=== PATIENT | male | born 1970 | race Caucasian/White ===

== ENCOUNTER 2018-06-15 17:41 | Inpatient (IN) | payer MEDICAID ==
[~2018-06-15] VITALS: Ht 175.3 cm; Wt 85.0 kg
[2018-06-15] MEDS ORDERED: normal saline 1000ML IV soln IV ONE (18:00)
[2018-06-15 18:45] LABS: BASOPHILS # (AUTO) 0.1 X10'3 (0-0.2); BASOPHILS % (AUTO) 1.6 % (0-1); EOSINOPHILS # (AUTO) 0.1 X10'3 (0-0.9); EOSINOPHILS % (AUTO) 1.4 % (0-6); HEMATOCRIT 48.3 % (42.0-52.0); HEMOGLOBIN 15.9 g/dl (14.0-17.9); LYMPHOCYTES # (AUTO) 1.3 X10'3 (1.1-4.8); LYMPHOCYTES % (AUTO) 24.7 % (21-51); MEAN CORPUSCULAR HGB CONC 32.9 g/dL (33.0-36.5); MEAN CORPUSCULAR VOLUME 91.2 FL (78-98); MONOCYTES # (AUTO) 0.7 X10'3 (0-0.9); MONOCYTES % (AUTO) 13.1 % (2-12); NEUTROPHILS # (AUTO) 3.2 X10'3 (1.8-7.7); NEUTROPHILS % (AUTO) 59.2 % (42-75); PLATELET COUNT 266 X10'3 (140-440); RED CELL DISTRIBUTION WIDTH 14.8 % (11.5-14.5); WHITE BLOOD COUNT 5.4 X10'3 (4.5-11.0)
[2018-06-15 19:10] LABS: INR 1.2 INR
[2018-06-15 19:19] LABS: CLARITY,URINE CLEAR (Clear); COLOR,URINE YELLOW (Yellow); GLUCOSE, URINE NEGATIVE (Neg); KETONES,URINE NEGATIVE (Neg); LEUKOCYTE ESTERASE ,URINE NEGATIVE (Neg); NITRITES, URINE NEGATIVE (Neg); OCCULT BLOOD,URINE TRACE-INTACT (Neg); PROTEIN,URINE NEGATIVE (Neg)
[2018-06-15 19:19] LABS: ALANINE AMINOTRANSFERASE 57 U/L (12-78); ALBUMIN 2.8 G/DL (3.4-5.0); ALBUMIN/GLOBULIN RATIO 0.7 (1.1-1.5); ALKALINE PHOSPHATASE 93 IU/L (46-116); ANION GAP 10 (8-16); ASPARTATE AMINO TRANSFERASE 28 U/L (10-37); BILIRUBIN,TOTAL 0.5 MG/DL (0.1-1.0); BLOOD UREA NITROGEN 22 MG/DL (7-18); BUN/CREATININE RATIO 18.3 (5.4-32.0); CHLORIDE 102 MMOL/L (99-107); GLUCOSE 138 MG/DL (70-104); SODIUM 137 MMOL/L (135-145); TOTAL CARBON DIOXIDE 24.8 MMOL/L (24-32); TOTAL PROTEIN 6.6 G/DL (6.4-8.2); eGFR 64 ML/MIN
[2018-06-15 19:28] LABS: ETHANOL < 0.010 GM/DL (0.0-0.010)
[2018-06-15 19:28] LABS: BACTERIA,URINE NONE SEEN /HPF (Neg); RBC,URINE 0-2 /HPF (0-2); SQUAMOUS EPITHELIAL CELL,UR FEW /LPF (FEW); UA COLLECTION TYPE CLN CATCH MIDSTREAM; WBC,URINE NONE SEEN /HPF (0-4)
[2018-06-15 19:33] LABS: URINE AMPHETAMINE SCREEN NEGATIVE (Neg); URINE BARBITUATE SCREEN NEGATIVE (Neg); URINE BENZODIAZEPINES SCREEN NEGATIVE (Neg); URINE CANNABINOID SCREEN POSITIVE (Neg); URINE COCAINE SCREEN NEGATIVE (Neg); URINE METHADONE SCREEN NEGATIVE (Neg); URINE OPIATE SCREEN NEGATIVE (Neg); URINE PHENCYCLIDINE SCREEN NEGATIVE (Neg)
--- NOTE | 2018-06-15 19:38 | NUR ---
spoke to oma about poc. held second liter ns due to elevated bnp
[2018-06-15] MEDS ORDERED: NO HOME MEDS (20:19)
[2018-06-15] MEDS ORDERED: ondansetron/PF 4mg/2ml inj IV PRN (21:45)
[2018-06-15] MEDS ORDERED: magnesium hydroxide 30ml (MOM) UD suspension PO PRN (21:45)
[2018-06-15] MEDS ORDERED: mag hydrox/Alum hydrox/simeth 30ml oral suspension PO PRN (21:45)
--- NOTE | 2018-06-15 22:03 | NUR ---
VISITOR FOR BED 6 DROPPED THC CBD GUMMIES AND CIGARETTES FOR PT. SECURITY NOTIFIED. VISITOR NOT ALLOWED BACK INTO ER
--- NOTE | 2018-06-15 22:07 | NUR ---
TELE NURSE BUSY, WILL CALL BACK
[2018-06-15 22:40] VITALS: BP 148/95
--- NOTE | 2018-06-15 22:40 | NUR ---
Patient arrived on floor via gurney from the ED after receiving report from Michael ONOFRE. Patient able to ambulate to hospital bed with minimal assistance. Vitals taken, placed on awake overnight monitor, oriented to room. Patient on room air, no complaint of pain. IV is saline locked patent, saline flushed at this time. Patient's belongings accompanied
[2018-06-16 02:00] VITALS: BP 151/96
[2018-06-16 03:00] VITALS: BP 151/96
[2018-06-16 03:11] LABS: BASOPHILS # (AUTO) 0.1 X10'3 (0-0.2); BASOPHILS % (AUTO) 1.3 % (0-1); EOSINOPHILS # (AUTO) 0.1 X10'3 (0-0.9); EOSINOPHILS % (AUTO) 1.5 % (0-6); HEMOGLOBIN 14.8 g/dl (14.0-17.9); LYMPHOCYTES # (AUTO) 1.9 X10'3 (1.1-4.8); LYMPHOCYTES % (AUTO) 25.8 % (21-51); MEAN CORPUSCULAR HEMOGLOBIN 29.8 PG (27.0-31.0); MEAN CORPUSCULAR HGB CONC 32.9 g/dL (33.0-36.5); MEAN CORPUSCULAR VOLUME 90.7 FL (78-98); MEAN PLATELET VOLUME 8.5 FL (7.4-10.4); MONOCYTES # (AUTO) 0.9 X10'3 (0-0.9); MONOCYTES % (AUTO) 12.5 % (2-12); NEUTROPHILS # (AUTO) 4.3 X10'3 (1.8-7.7); NEUTROPHILS % (AUTO) 58.9 % (42-75); PLATELET COUNT 280 X10'3 (140-440); RED BLOOD COUNT 4.96 X10'6 (4.70-6.10); RED CELL DISTRIBUTION WIDTH 14.3 % (11.5-14.5); WHITE BLOOD COUNT 7.4 X10'3 (4.5-11.0)
[2018-06-16 03:44] LABS: ALANINE AMINOTRANSFERASE 43 U/L (12-78); ALBUMIN 2.3 G/DL (3.4-5.0); ALBUMIN/GLOBULIN RATIO 0.7 (1.1-1.5); ALKALINE PHOSPHATASE 79 IU/L (46-116); ANION GAP 10 (8-16); ASPARTATE AMINO TRANSFERASE 24 U/L (10-37); BILIRUBIN,TOTAL 0.3 MG/DL (0.1-1.0); BLOOD UREA NITROGEN 20 MG/DL (7-18); BUN/CREATININE RATIO 18.7 (5.4-32.0); CALCIUM 7.5 MG/DL (8.5-10.1); CHLORIDE 109 MMOL/L (99-107); CHOL/HDL RATIO 3.4 (0.00-4.99); CHOLESTEROL 109 MG/DL (0-200); CREATININE 1.07 MG/DL (0.60-1.10); GLUCOSE 103 MG/DL (70-104); HDL CHOLESTEROL 32 MG/DL (35-60); LDL CHOLESTEROL 69 MG/DL (50-100); POTASSIUM 4.1 MMOL/L (3.5-5.1); SODIUM 144 MMOL/L (135-145); TOTAL CARBON DIOXIDE 25.1 MMOL/L (24-32); TOTAL PROTEIN 5.7 G/DL (6.4-8.2); TRIGLYCERIDES 96 MG/DL (20-135); eGFR 73 ML/MIN
[2018-06-16 06:00] VITALS: BP 138/75
--- NOTE | 2018-06-16 06:30 | NUR ---
Patient in room PCU 3016. I have received report from JEMIMA Rabago and had the opportunity to ask questions and assume patient care.
--- NOTE | 2018-06-16 06:42 | NUR ---
Problems reprioritized. Patient report given, questions answered & plan of care reviewed with Le ONOFRE
[2018-06-16] MEDS: cephalexin 500mg capsule PO SCH ×3 (08:51→20:30)
[2018-06-16] MEDS: furosemide 40mg/4ml inj IV SCH ×2 (08:52→20:31)
[2018-06-16] MEDS: carVEDilol 3.125mg tablet PO SCH ×2 (08:52→20:31)
[2018-06-16] MEDS: heparin, porcine 5000 units/ml vial SQ SCH ×2 (08:52→20:31)
[2018-06-16] MEDS ORDERED: FLU VACC QUAD 2018(5 YR UP)/PF 60 MCG/0.5 ML SYRINGE IM ONE ×2 (10:00→20:50)
[2018-06-16] MEDS ORDERED: pneumococcal 23-VAL P-sac vacc 25 mcg/0.5ml vial IMVAC ONE (10:00)
[2018-06-16] MEDS: LORazepam 2 mg/ml vial IV PRN ×2 (14:57→20:45)
[2018-06-16 15:00] VITALS: BP 141/93
[2018-06-16 18:00] VITALS: BP 149/107
--- NOTE | 2018-06-16 18:08 | NUR ---
Problems reprioritized. Patient report given, questions answered & plan of care reviewed with JEMIMA Ramirez.
--- NOTE | 2018-06-16 18:27 | NUR ---
Student documentation: I have reviewed and agree with all interventions, assessments performed and documented by SN Maria E.
--- NOTE | 2018-06-16 18:27 | NUR ---
Student Medication Administration: For this medication-pass time frame, all medication were reviewed, dispensed, administered and documented per hospital policy by SN Maria E.
[2018-06-16] MEDS: lactobacillus rhamnosus 10,000 MMU CELLS/CAPSULE PO SCH (20:31)
[2018-06-16] MEDS: lisinopril 10 MG tablet PO SCH (20:31)
[2018-06-16] MEDS: acetaminophen 325mg tablet PO PRN (20:49)
[2018-06-16 22:00] VITALS: BP 145/94
[2018-06-17 02:00] VITALS: BP 118/77
[2018-06-17] MEDS: acetaminophen 325mg tablet PO PRN (04:47)
[2018-06-17] MEDS: LORazepam 2 mg/ml vial IV PRN ×2 (04:47→20:25)
--- NOTE | 2018-06-17 04:57 | NUR ---
Pt refusing labs. tissue technician will send another later for blood draw.
[2018-06-17 06:00] VITALS: BP 137/92
--- NOTE | 2018-06-17 06:20 | NUR ---
Problems reprioritized. Patient report given, questions answered & plan of care reviewed with Art, RN.
[2018-06-17 06:21] LABS: ALANINE AMINOTRANSFERASE 44 U/L (12-78); ALBUMIN 2.6 G/DL (3.4-5.0); ALBUMIN/GLOBULIN RATIO 0.7 (1.1-1.5); ALKALINE PHOSPHATASE 83 IU/L (46-116); ANION GAP 10 (8-16); ASPARTATE AMINO TRANSFERASE 26 U/L (10-37); BILIRUBIN,TOTAL 0.7 MG/DL (0.1-1.0); BLOOD UREA NITROGEN 19 MG/DL (7-18); BUN/CREATININE RATIO 17.4 (5.4-32.0); CALCIUM 8.6 MG/DL (8.5-10.1); CHLORIDE 102 MMOL/L (99-107); CREATININE 1.09 MG/DL (0.60-1.10); GLUCOSE 108 MG/DL (70-104); SODIUM 138 MMOL/L (135-145); TOTAL CARBON DIOXIDE 26.3 MMOL/L (24-32); TOTAL PROTEIN 6.4 G/DL (6.4-8.2); eGFR 72 ML/MIN
[2018-06-17] MEDS: lactobacillus rhamnosus 10,000 MMU CELLS/CAPSULE PO SCH ×2 (07:56→20:24)
[2018-06-17] MEDS: carVEDilol 3.125mg tablet PO SCH (07:56)
[2018-06-17] MEDS: cephalexin 500mg capsule PO SCH ×3 (07:57→20:25)
[2018-06-17] MEDS: furosemide 40mg/4ml inj IV SCH ×2 (07:58→20:33)
[2018-06-17] MEDS: heparin, porcine 5000 units/ml vial SQ SCH ×2 (07:58→20:25)
[2018-06-17] MEDS ORDERED: carVEDilol 3.125mg tablet PO ONE (08:30)
[2018-06-17 11:00] VITALS: BP 147/94
--- NOTE | 2018-06-17 13:44 | NUR ---
PAGER ID: [phone] MESSAGE: Dr. Richard, Pt [place] in [id number] is requesting Motrin for a headache. He was offered Tylenol, but he states that only Motrin will work. Art, 1991
[2018-06-17] MEDS: ibuprofen tablet 400 MG TABLET PO PRN ×2 (14:06→20:25)
[2018-06-17 15:00] VITALS: BP 136/95
[2018-06-17 18:00] VITALS: BP 119/96
--- NOTE | 2018-06-17 18:17 | NUR ---
Patient in room PCU 3016. I have received report from Art RN and had the opportunity to ask questions and assume patient care.
[2018-06-17] MEDS ORDERED: carVEDilol 3.125mg tablet PO SCH (20:00)
[2018-06-17] MEDS: lisinopril 10 MG tablet PO SCH (20:33)
[2018-06-17] MEDS: carvedilol 6.25mg tablet PO SCH (20:33)
[2018-06-17 22:00] VITALS: BP 99/60
[2018-06-18] VITALS (7 sets, daily range): BP systolic 97–121; BP diastolic 62–89
--- NOTE | 2018-06-18 05:31 | NUR ---
Patient refused lab draw.
--- NOTE | 2018-06-18 06:29 | NUR ---
Problems reprioritized. Patient report given, questions answered & plan of care reviewed with Art RN. patient currently sleeping on his left side. Bed is low, rails x 2 up.
[2018-06-18] MEDS: cephalexin 500mg capsule PO SCH ×3 (07:46→20:02)
[2018-06-18] MEDS: lactobacillus rhamnosus 10,000 MMU CELLS/CAPSULE PO SCH ×2 (07:46→20:00)
[2018-06-18] MEDS: carvedilol 6.25mg tablet PO SCH ×2 (07:46→20:00)
[2018-06-18 07:49] LABS: ALANINE AMINOTRANSFERASE 41 U/L (12-78); ALBUMIN 2.8 G/DL (3.4-5.0); ALBUMIN/GLOBULIN RATIO 0.7 (1.1-1.5); ALKALINE PHOSPHATASE 86 IU/L (46-116); ANION GAP 9 (8-16); ASPARTATE AMINO TRANSFERASE 25 U/L (10-37); BILIRUBIN,TOTAL 0.4 MG/DL (0.1-1.0); BLOOD UREA NITROGEN 24 MG/DL (7-18); BUN/CREATININE RATIO 22.9 (5.4-32.0); CALCIUM 8.5 MG/DL (8.5-10.1); CHLORIDE 101 MMOL/L (99-107); CREATININE 1.05 MG/DL (0.60-1.10); GLUCOSE 95 MG/DL (70-104); POTASSIUM 4.4 MMOL/L (3.5-5.1); SODIUM 137 MMOL/L (135-145); TOTAL CARBON DIOXIDE 27.4 MMOL/L (24-32); TOTAL PROTEIN 6.8 G/DL (6.4-8.2); eGFR 75 ML/MIN
[2018-06-18] MEDS: LORazepam 2 mg/ml vial IV PRN ×2 (07:59→21:52)
[2018-06-18] MEDS: ibuprofen tablet 400 MG TABLET PO PRN ×2 (08:01→20:54)
[2018-06-18] MEDS: furosemide 40mg/4ml inj IV SCH ×2 (08:01→19:59)
[2018-06-18] MEDS: heparin, porcine 5000 units/ml vial SQ SCH ×2 (08:02→20:00)
--- NOTE | 2018-06-18 18:26 | NUR ---
Patient in room U 3016. I have received report from JEMIMA Escalera and had the opportunity to ask questions and assume patient care. Addendum: 06/18/18 at 1826 by Teresita Castillo RN Amended: Links added.
[2018-06-18] MEDS: lisinopril 10 MG tablet PO SCH (20:02)
--- NOTE | 2018-06-18 22:08 | NUR ---
pt refuses to have iv restarted at this time, states "maybe later" pt very adamant states no one is going to "poke me with a needle tonight" "I'm going home tomorrow" Addendum: 06/18/18 at 2209 by Teresita Castillo RN Amended: Links added.
[2018-06-19 02:00] VITALS: BP 96/55
[2018-06-19 06:00] VITALS: BP 104/67
--- NOTE | 2018-06-19 06:26 | NUR ---
Problems reprioritized. Patient report given, questions answered & plan of care reviewed with RN. Addendum: 06/19/18 at 0626 by Teresita Castillo RN Amended: Links added.
[2018-06-19] MEDS: ibuprofen tablet 400 MG TABLET PO PRN (06:27)
--- NOTE | 2018-06-19 06:31 | NUR ---
Patient in room PCU 3016. I have received report from JEMIMA Patino and had the opportunity to ask questions and assume patient care.
[2018-06-19] MEDS: furosemide 40mg/4ml inj IV SCH (08:00)
[2018-06-19] MEDS: lactobacillus rhamnosus 10,000 MMU CELLS/CAPSULE PO SCH (08:20)
[2018-06-19] MEDS: cephalexin 500mg capsule PO SCH ×2 (08:20→13:14)
[2018-06-19] MEDS: heparin, porcine 5000 units/ml vial SQ SCH (08:20)
[2018-06-19] MEDS: carvedilol 6.25mg tablet PO SCH (08:21)
[2018-06-19 08:30] LABS: ALANINE AMINOTRANSFERASE 58 U/L (12-78); ALBUMIN 2.9 G/DL (3.4-5.0); ALBUMIN/GLOBULIN RATIO 0.7 (1.1-1.5); ALKALINE PHOSPHATASE 87 IU/L (46-116); ANION GAP 7 (8-16); ASPARTATE AMINO TRANSFERASE 38 U/L (10-37); BILIRUBIN,TOTAL 0.4 MG/DL (0.1-1.0); BLOOD UREA NITROGEN 22 MG/DL (7-18); BUN/CREATININE RATIO 21.6 (5.4-32.0); CALCIUM 8.2 MG/DL (8.5-10.1); CHLORIDE 98 MMOL/L (99-107); CREATININE 1.02 MG/DL (0.60-1.10); GLUCOSE 107 MG/DL (70-104); POTASSIUM 4.2 MMOL/L (3.5-5.1); SODIUM 133 MMOL/L (135-145); TOTAL CARBON DIOXIDE 27.8 MMOL/L (24-32); TOTAL PROTEIN 6.8 G/DL (6.4-8.2); eGFR 77 ML/MIN
[2018-06-19] MEDS ORDERED: spironolactone 25 MG tablet PO SCH (08:30)
--- NOTE | 2018-06-19 08:30 | NUR ---
PAGER ID: [phone] MESSAGE: shamar stevenson for guanako stevenson tele [id number] Re pt Quinn Narayan pulled out iv. may we changed 20IV Lasix to PO? please advise.
--- NOTE | 2018-06-19 09:38 | NUR ---
Initial: Pt admit with acute systolic CHF. Per MD progress notes EF 30% with moderate MR and TR and pulmonary hypertension mostly r/t drug abuse. Pt also with mild feet cellulitis per MD progress notes. Pt currently on a heart healthy diet with documented PO intake 100% with the exception of 50-75% at lunch yesterday afternoon, pt likely meeting nutrient needs. [facility] 06/18. Will continue to follow. Recommendations: 1) Continue with heart healthy diet 2) Wt per rx Addendum: 06/19/18 at [address] Amended: Links added.
[2018-06-19 11:00] VITALS: BP 120/77
--- NOTE | 2018-06-19 11:15 | NUR ---
Patient has been refusing to have IV put in so IV Lasix is unable to be administered
--- NOTE | 2018-06-19 11:46 | NUR ---
PAGER ID: [phone] MESSAGE: [id number] Quinn Helene was wondering about DC. Was supposed to go yesterday. He has an appointment in [place] he needs to go to JEMIMA Talley Ext 2023
[2018-06-19] MEDS ORDERED: CARV6.253 PO (13:18)
[2018-06-19] MEDS ORDERED: POTA10TA36 PO (13:18)
[2018-06-19] MEDS ORDERED: LACT1CAP26 PO (13:18)
[2018-06-19] MEDS ORDERED: FURO-150 PO (13:18)
[2018-06-19] MEDS ORDERED: LISI10TA4 PO (13:18)
[2018-06-19] MEDS ORDERED: CEPH500C5 PO (13:18)
[2018-06-19] MEDS ORDERED: ASPI-611 PO (13:22)
[2018-06-19] MEDS ORDERED: SPIR25TA5 PO (13:24)
== END 2018-06-19 13:54 | disposition home or self-care (01) | DRG 383 ==
LOC: ER 17:44 → ED HOLD 21:42 → PCU 3S 22:30
PROVIDERS: ADMIT Internal Medicine; ATTEND Family Medicine
PROC: 3E0234Z Introduction of Serum, Toxoid and Vaccine into Muscle, Percutaneous Approach (ICD-10-PCS; principal; 2018-06-16)
PROC: 3E02340 Introduction of Influenza Vaccine into Muscle, Percutaneous Approach (ICD-10-PCS; 2018-06-16)
DX: L03.119 Cellulitis of unspecified part of limb (principal); I50.43 Acute on chronic combined systolic (congestive) and diastolic (congestive) heart failure; E87.2 Acidosis; I27.20 Pulmonary hypertension, unspecified; F20.9 Schizophrenia, unspecified; I11.0 Hypertensive heart disease with heart failure; I42.0 Dilated cardiomyopathy; I08.1 Rheumatic disorders of both mitral and tricuspid valves; I42.7 Cardiomyopathy due to drug and external agent; F15.10 Other stimulant abuse, uncomplicated; F17.210 Nicotine dependence, cigarettes, uncomplicated; F31.9 Bipolar disorder, unspecified; G43.909 Migraine, unspecified, not intractable, without status migrainosus; J44.9 Chronic obstructive pulmonary disease, unspecified; F12.90 Cannabis use, unspecified, uncomplicated; F41.9 Anxiety disorder, unspecified; Z23 Encounter for immunization; Z79.899 Other long term (current) drug therapy; Y92.89 Other specified places as the place of occurrence of the external cause; Z71.6 Tobacco abuse counseling; Z71.51 Drug abuse counseling and surveillance of drug abuser
CPT/HCPCS: 36415; 71045; 80053; 80061; 80305; 80320; 81001; 82948; 83036; 83605; 83880; 84145; 84484; 85025; 85610; 87040; 87070; 90732; 93005; 93306; 96360; 99285; G0378; J1644; J1940; J2060; Q2037